=== PATIENT | female | born 1995 | race African-American/Black ===

== ENCOUNTER 2020-06-30 08:48 | Emergency (ER) | payer MEDICAID, SELFPAY ==
[2020-06-30 09:05] VITALS: BP 116/58; PULSE 83; RESP 16; TEMP 36.8; O2SAT 99; BMI 33.7
--- NOTE | 2020-06-30 09:40 | US_ITS ---
EXAMINATION: ULTRASOUND OF THE PELVIS CLINICAL INFORMATION: Suprapubic abdominal pain.. COMPARISON: Pelvic ultrasound done on 12/02/2017.. TECHNIQUE: Transabdominal and transvaginal pelvic ultrasound. Doppler evaluation including arterial as well as venous spectral Doppler waveforms and color Doppler were performed. FINDINGS: The uterus is normal in size and appearance, measuring 6.6 x 3.3 x 4.2 cm longitudinally, anteroposteriorly and transversely. The endometrial stripe thickness is normal, measuring 0.8 cm in thickness. No focal myometrial mass is seen. The ovaries bilaterally are visualized and appear normal, with the right ovary measuring 3.5 x 3.3 x 2.8 cm, and the left ovary measuring 2.1 x 2.1 x 2.0 cm. Arterial as well as venous flow to both ovaries are well-maintained. No adnexal mass or free fluid collection seen. A transvaginal study was performed in addition to the transabdominal study which did not yield an adequate examination of the uterus and ovaries due to superimposed distended gas-filled loops of bowel. US/US pelvic ovarian doppler IMPRESSION: Unremarkable examination.
--- NOTE | 2020-06-30 09:55 | US_ITS ---
EXAMINATION: ULTRASOUND OF THE PELVIS CLINICAL INFORMATION: Suprapubic abdominal pain.. COMPARISON: Pelvic ultrasound done on 12/02/2017.. TECHNIQUE: Transabdominal and transvaginal pelvic ultrasound. Doppler evaluation including arterial as well as venous spectral Doppler waveforms and color Doppler were performed. FINDINGS: The uterus is normal in size and appearance, measuring 6.6 x 3.3 x 4.2 cm longitudinally, anteroposteriorly and transversely. The endometrial stripe thickness is normal, measuring 0.8 cm in thickness. No focal myometrial mass is seen. The ovaries bilaterally are visualized and appear normal, with the right ovary measuring 3.5 x 3.3 x 2.8 cm, and the left ovary measuring 2.1 x 2.1 x 2.0 cm. Arterial as well as venous flow to both ovaries are well-maintained. No adnexal mass or free fluid collection seen. A transvaginal study was performed in addition to the transabdominal study which did not yield an adequate examination of the uterus and ovaries due to superimposed distended gas-filled loops of bowel. US/US pelvic complete IMPRESSION: Unremarkable examination.
[2020-06-30 09:58] LABS: MANUAL DIFF FLAG NO
[2020-06-30 10:00] LABS: Glucose Urine UA NEG (NEG); Leukocyte Esterase Urine NEG (NEG); Nitrite Urine NEG (NEG); PH 6.5 (5.0-8.0); Urine Blood 1+ (NEG); Urine Ketones NEG (NEG); Urine Protein NEG (NEG-TRACE)
[2020-06-30 10:02] LABS: Basophils Percent Auto 0.2 % (0-2); Eosinophils Percent Auto 0.5 % (0-4); Hematocrit 35.1 % (37-47); Hemoglobin 11.9 g/dl (12.0-16.0); Imm Gran Abs Auto 0.01 X10*3/uL (0.00-0.03); Imm Gran Pct Auto 0.2 % (0.0-0.4); Lymphocytes Percent Auto 15.8 % (20-40); Mean Corpuscular HGB Conc 33.9 g/dl (31.0-35.0); Mean Corpuscular Hemoglobin 30.7 pg (27.0-33.0); Mean Corpuscular Volume 90.5 fL (80-98); Mean Platelet Volume 10.1 fL (9.4-12.3); Monocytes Absolute Auto 0.4 X10*3/uL (0.1-1.2); Monocytes Percent Auto 5.8 % (2-11); Neutrophils Percent Auto 77.5 % (45-73); Platelet Count 230 X10*3/uL (160-400); Red Blood Count 3.88 X10*6/uL (4.20-5.50); Red Cell Distribution Width 13.4 % (11.0-16.0); White Blood Count 6.4 X10*3/uL (4.8-10.8)
[2020-06-30 10:03] LABS: Appearance Urine CLEAR; Color Urine YELLOW
[2020-06-30 10:04] LABS: UPreg QC Valid YES; Urine Pregnancy NEGATIVE (NEGATIVE)
[2020-06-30 10:08] LABS: WBC Urine 0-2 /HPF (0-4)
[2020-06-30 10:09] LABS: Mucus Urine 1+ /LPF; Squamous Epithelial Cell Urine 1+ /LPF
[2020-06-30 10:27] LABS: Alanine Aminotransferase 6 U/L (0-31); Albumin Level 4.2 g/dL (3.5-5.0); Alkaline Phosphatase 43 U/L (39-117); Anion Gap 15 (12-20); Aspartate Amino Transferase 11 U/L (5-31); Bilirubin Direct 0.2 mg/dL (0.0-0.5); Bilirubin Total 0.6 mg/dL (0.0-1.0); Blood Urea Nitrogen 10 mg/dL (9-16); Carbon Dioxide 24 mmol/L (22-29); Chloride 108 mmol/L (96-108); Creatinine Clr Calc Pharmacy 140.9; Estimated Glomerular Filt Rate > 60; Glucose Random 95 mg/dL (60-115); Magnesium 2.2 mg/dL (1.6-2.6); Potassium 3.5 mmol/l (3.3-5.1); Sodium 143 mmol/L (135-145); Total Protein 6.9 g/dL (6.5-8.0)
[2020-06-30 11:25] VITALS: BP 111/45; PULSE 58; RESP 16; TEMP 36.8; O2SAT 97
--- NOTE | 2020-06-30 11:28 | ED_ITS ---
HPI - Female Genitourinary General Chief complaint: Vaginal Bleeding Stated complaint: VAGINAL BLEEDNING Time Seen by Provider: 06/30/20 09:31 Source: patient Mode of arrival: ambulatory Limitations: no limitations History of Present Illness HPI Narrative: 24yoF c PMHx of asthma and pyelonephritis to the ED with com plaints of vaginal bleeding during intercourse for the past 2 days. Reports no bleeding after intercourse. Reports she feels like it fits her. With mild suprapubic abdominal cramping. She denies any fevers, nausea/vomiting, dysuria, hematuria, abnormal vaginal discharge or any other symptoms complaints or concerns. Reports that she has been sexually active with 2 different males unprotected in the past few months although reports she does not believe she has an STD but is here to be checked for an STD. Reports that her last period was on 06/18 which lasted a few days. Related Data Allergies Allergy/AdvReac Type Severity Reaction Status Date / Time Penicillins [PENICILLINS] Allergy Unknown RASH Unverified 04/12/20 16:36 Review of Systems Review of Systems: Constitutional : No Fever, No Chills ENT/Mouth : No sore throat, No Rhinorrhea Eyes: No Eye Pain, No Redness Cardiovascular : No Chest Pain, No SOB Respiratory : No Cough, No Sputum, No Wheezing Gastrointestinal : No Nausea, No Vomiting, No Diarrhea, positive abdominal pain, Genitourinary : + irregular bleeding, No Dysuria, No Urinary Frequency, No pelvic pain, No vaginal discharge Musculoskeletal : No Myalgias Skin : No rash Neuro : No Weakness, No Headache Psych : No Anxiety/Panic, No Depression Heme/Lymph: No bruising, No Lymphadenopathy Endocrine : No Polyuria, No Polydipsia Yes all other systems are reviewed and are negative [facility] Past Medical History Attestation statement: The following information was validated with the patient. Social History Social History Smoked in Last 30 Days: No Use of substances other than those prescribed or required for medical reasons: Yes Substance Use Type: Marijuana Advance Directives: No Advance Directives Information Provided: No Physical Exam Vital Signs: Vital Signs: Last Vital Signs Temp 98.3 F 06/30/20 11:25 Pulse 58 06/30/20 11:25 Resp 16 06/30/20 11:25 BP 111/45 L 06/30/20 11:25 Pulse Ox 97 06/30/20 11:25 Body Mass Index 33.7 vital signs have been reviewed as normal and appeared to be correct. Blood pressure normal. Heart rate normal. Respiration rate normal. Temperature normal. Oxygen saturation normal. Appearance: Alert. Oriented X3. No acute distress. Head: Normal external exam. Normocephalic. Atraumatic. No Navarrete signs noted. No raccoon eyes noted Eyes: PERRLA. EOMI. Conjunctiva and sclera normal. Eyelids normal. ENT: EAC normal. TM's Normal. Pharynx normal. Uvula midline. Moist mucous membranes. No trismus noted. No drooling noted. No muffled voice noted. Neck: Normal inspection. Neck supple. FROM. No adenopathy. Thyroid Normal. No meningeal signs. No neck mass noted. CVS: Normal heart rate and rhythm. Heart sound normal. No murmurs noted. Pulses normal throughout. Respiratory: No respiratory distress. Painless inspiration. Breath sounds normal. No wheezes/rales/rhonchi noted. Chest nontender. No accessory muscle usage noted or decreased air movement noted. Abdomen: Soft and nontender. Bowel sounds normal in all 4 quadrants. No distention noted. No organomegaly noted. No visible injury noted. : Supervised by TIMBO James Normal external appearance of urethra. No lesions/lacerations or discharge or tenderness noted. Speculum exam normal appearance/palpation of vagina normal. A light brown thin colored discharge noted. Otherwise no vaginal erythema. No foreign bodies noted. No vaginal laceration/lesions or active bleeding noted. No tissue present in vagina. No vaginal mass noted. No vaginal swelling noted. No vaginal tenderness noted. Normal appearance of cervix. Normal palpation of cervix. Cervical os is closed. No abnormal cervical discharge noted. No cervical lesion/mass. No Bartholin cyst noted. No cervical motion tenderness noted. Negative chandelier sign. Normal bimanual exam. Uterine size normal. Bladder normal to palpation. Uterine consistency normal. Normal cervical palpation. Uterine mobility normal. Uterine shape normal. Normal adnexa. Normal rectovaginal exam. Back: No CVA tenderness. Full range of motion noted. Skin: Skin warm and dry. Normal skin color. Normal skin turgor. No rashes/lesions/lacerations noted. Extremities: No lower extremity edema. Extremities exhibit normal range of motion. Extremities nontender. Neuro: Oriented X 3. No motor deficit. No sensory deficit. Reflexes normal. Course Course Course Narrative: 24yoF c PMHx of asthma and pyelonephritis presenting to the ED with complaints of vaginal bleeding during intercourse for the past 2 days. No bleeding after intercourse. Requesting STD testing. Has recently had unprotected intercourse with 2 different males. Denies any additional com plaints or concerns at this time. - labs obtained within normal limits. UA within normal limits no evidence of UTI. UHCG negative for . Transvaginal/pelvic/ovarian ultrasound within normal limits no acute processes noted. - chlamydia/Trichomonas/yeast/bacterial vaginosis pending at this time. I discussed with the patient about possible gonorrhea and chlamydia and risks associated with being untreated which include infertility therefore patient agreed with being treated for gonorrhea chlamydia with 1 g of azithromycin and 250 mg of IM ceftriaxone. All others will be pending which include Trichomonas/yeast and bacterial vaginosis. Will DC home with instructions to return if any new or worsening symptoms and to stay abstinent from any sexual intercourse for at least 14 days. Patient understands agrees the plan. MDM - Female Genitourinary Differential Diagnosis Differential diagnosis: Likely urinary tract infection, bacterial vaginosis, trichomoniasis, cervicitis, ovarian cyst, vaginitis and cystitis Medical Records Attestation: I reviewed the patient's medical records. Lab Data Attestation: I reviewed the patient's lab results. Result diagrams: 06/30/20 09:48 06/30/20 09:48 Labs: Lab Results 06/30/20 06/30/20 06/30/20 Range/Units 09:48 09:48 09:48 WBC 6.4 (4.8-10.8) X10*3/uL RBC 3.88 L (4.20-5.50) X10*6/uL Hgb 11.9 L (12.0-16.0) g/dl Hct 35.1 L (37-47) % MCV 90.5 (80-98) fL MCH 30.7 (27.0-33.0) pg MCHC 33.9 (31.0-35.0) g/dl RDW 13.4 (11.0-16.0) % Plt Count 230 (160-400) X10*3/uL MPV 10.1 (9.4-12.3) fL Immature Gran % (Auto) 0.2 (0.0-0.4) % Neut % (Auto) 77.5 H (45-73) % Lymph % (Auto) 15.8 L (20-40) % Sebastian % (Auto) 5.8 (2-11) % Eos % (Auto) 0.5 (0-4) % Baso % (Auto) 0.2 (0-2) % Lymph # (Auto) 1.0 L (1.2-4.9) X10*3/uL Sebastian # (Auto) 0.4 (0.1-1.2) X10*3/uL Eos # (Auto) 0.0 (0.0-0.4) X10*3/uL Baso # (Auto) 0.0 (0.0-0.2) X10*3/uL Abs Immat Gran (auto) 0.01 (0.00-0.03) X10*3/uL Absolute Neuts (auto) 5.0 (2.0-8.3) X10*3/uL Absolute Nucleated RBC 0.000 (0.0-0.012) X10*3/uL Nucleated RBC % (auto) 0.0 (0.0-0.2) /100WBC Hold Blue Top SEE NOTE Sodium 143 (135-145) mmol/L Potassium 3.5 (3.3-5.1) mmol/l Chloride 108 (96-108) mmol/L Carbon Dioxide 24 (22-29) mmol/L Anion Gap 15 (12-20) BUN 10 (9-16) mg/dL Creatinine 0.69 (0.5-1.4) mg/dL Estim Creat Clear Calc 140.9 Estimated GFR > 60 Random Glucose 95 (60-115) mg/dL Calcium 9.0 (8.4-10.2) mg/dL Magnesium 2.2 (1.6-2.6) mg/dL Total Bilirubin 0.6 (0.0-1.0) mg/dL Direct Bilirubin 0.2 (0.0-0.5) mg/dL AST 11 (5-31) U/L ALT 6 (0-31) U/L Alkaline Phosphatase 43 (39-117) U/L Total Protein 6.9 (6.5-8.0) g/dL Albumin 4.2 (3.5-5.0) g/dL Urine Color Urine Appearance Urine pH (5.0-8.0) Ur Specific [place] (1.005-1.025) Urine Protein (NEG-TRACE) MG/DL Urine Glucose (UA) (NEG) MG/DL Urine Ketones (NEG) MG/DL Urine Blood (NEG) Urine Nitrite (NEG) Ur Leukocyte Esterase (NEG) Urine RBC (0) /HPF Urine WBC (0-4) /HPF Ur Squamous Epith Cells /LPF Urine Bacteria /LPF Urine Mucus /LPF Urine Test (NEGATIVE) 06/30/20 Range/Units 09:49 WBC (4.8-10.8) X10*3/uL RBC (4.20-5.50) X10*6/uL Hgb (12.0-16.0) g/dl Hct (37-47) % MCV (80-98) fL MCH (27.0-33.0) pg MCHC (31.0-35.0) g/dl RDW (11.0-16.0) % Plt Count (160-400) X10*3/uL MPV (9.4-12.3) fL Immature Gran % (Auto) (0.0-0.4) % Neut % (Auto) (45-73) % Lymph % (Auto) (20-40) % Sebastian % (Auto) (2-11) % Eos % (Auto) (0-4) % Baso % (Auto) (0-2) % Lymph # (Auto) (1.2-4.9) X10*3/uL Sebastian # (Auto) (0.1-1.2) X10*3/uL Eos # (Auto) (0.0-0.4) X10*3/uL Baso # (Auto) (0.0-0.2) X10*3/uL Abs Immat Gran (auto) (0.00-0.03) X10*3/uL Absolute Neuts (auto) (2.0-8.3) X10*3/uL Absolute Nucleated RBC (0.0-0.012) X10*3/uL Nucleated RBC % (auto) (0.0-0.2) /100WBC Hold Blue Top Sodium (135-145) mmol/L Potassium (3.3-5.1) mmol/l Chloride (96-108) mmol/L Carbon Dioxide (22-29) mmol/L Anion Gap (12-20) BUN (9-16) mg/dL Creatinine (0.5-1.4) mg/dL Estim Creat Clear Calc Estimated GFR Random Glucose (60-115) mg/dL Calcium (8.4-10.2) mg/dL Magnesium (1.6-2.6) mg/dL Total Bilirubin (0.0-1.0) mg/dL Direct Bilirubin (0.0-0.5) mg/dL AST (5-31) U/L ALT (0-31) U/L Alkaline Phosphatase (39-117) U/L Total Protein (6.5-8.0) g/dL Albumin (3.5-5.0) g/dL Urine Color YELLOW Urine Appearance CLEAR Urine pH 6.5 (5.0-8.0) Ur Specific [place] 1.020 (1.005-1.025) Urine Protein NEG (NEG-TRACE) MG/DL Urine Glucose (UA) NEG (NEG) MG/DL Urine Ketones NEG (NEG) MG/DL Urine Blood 1+ H (NEG) Urine Nitrite NEG (NEG) Ur Leukocyte Esterase NEG (NEG) Urine RBC 1-4 (0) /HPF Urine WBC 0-2 (0-4) /HPF Ur Squamous Epith Cells 1+ /LPF Urine Bacteria NONE /LPF Urine Mucus 1+ /LPF Urine Test NEGATIVE (NEGATIVE) Imaging Data US - abdomen: Attestation: I personally reviewed and interpreted this imaging study as follows: Radiologist's impression: IMPRESSION: Unremarkable examination. Discharge Plan Discharge Clinical Impression: Vaginal bleeding Patient Disposition: Home, Self-Care Instructions: Dysfunctional Uterine Bleeding (ED), Safe Sex Practices (ED), Sexually Transmitted Diseases (ED) Additional Instructions: You were treated for gonorrhea and chlamydia today although this does not mean that you were results came back positive they are still pending. You have Trichomonas/bacterial vaginosis/yeast still pending at this time you were not treated for this. If any of these are positive you will be contacted. You should stay abstinent from any sexual intercourse for at least 10-14 days. If you are contacted and you were negative for gonorrhea chlamydia you can return back to sexual intercourse before this. Return if any new or worsening symptoms. Follow up with her primary care provider/OBGYN. Referrals: Physician,Unknown [Primary Care Provider] - 2 days (your pcp/obgyn) Print Language: Croatian
[2020-06-30] MEDS: Azithromycin 500 MG TABLET 1000 MG PO (11:56)
[2020-06-30] MEDS: cefTRIAXone sodium 250 MG, Lidocaine HCl 1 % MPF 0.9 ML IM (12:00)
[2020-07-01 13:14] LABS: BV Int Neg Control Negative (Negative); BV Int Pos Control Positive (Positive)
[2020-07-06 14:27] LABS: CT PCR DETECTED (Not Detect.); NG PCR NOT DETECTED (Not Detect.)
== END 2020-06-30 12:03 | disposition home or self-care (01) ==
PROVIDERS: Physician Assistant Medical; Emergency Provider Emergency Medicine Emergency Medical Services
DX: N93.9 Abnormal uterine and vaginal bleeding, unspecified (principal); N76.0 Acute vaginitis; A56.02 Chlamydial vulvovaginitis
CPT/HCPCS: 36415; 76830; 76856; 80048; 80076; 81001; 81025; 83735; 85025; 87480; 87491; 87510; 87591; 87660; 93975; 96372; 99284; J0696

== ENCOUNTER 2020-08-14 13:02 | Emergency (ER) | payer MEDICAID, SELFPAY ==
[2020-08-14 14:25] VITALS: BP 118/81; PULSE 68; RESP 18; TEMP 36.8; O2SAT 98; BMI 33.3
--- NOTE | 2020-08-14 14:59 | ED.FEMALEGU ---
HPI - Female Genitourinary General Chief complaint: Urogenital-Female <ODETTE Hamilton - Last Filed: 08/14/20 15:04> Stated complaint: std? <ODETTE Hamilton - Last Filed: 08/14/20 15:04> Time Seen by Provider: 08/14/20 14:32 <ODETTE Hamilton - Last Filed: 08/14/20 15:04> Source: patient <ODETTE Hamilton Last Filed: 08/14/20 15:04> Mode of arrival: ambulatory <ODETTE Hamilton - Last Filed: 08/14/20 15:04> Limitations: no limitations <ODETTE Hamilton Last Filed: 08/14/20 15:04> History of Present Illness HPI Narrative: 24-year-old female presenting to the ED with complaints of exposure to possible STD. Reports that she was seen here on 06/30/2020 and treated for gonorrhea chlamydia, bacterial vaginosis and yeast infection although she had sexual intercourse with the same male who she believes might not have received proper treatment therefore she is concerned for gonorrhea chlamydia and wants to be treated again. Denies any symptoms at this time. <ODETTE Hamilton - Last Filed: 08/14/20 15:04> Related Data Home medications: Previous Rx's Medication Instructions Recorded fluconazole [Diflucan] 150 mg PO Q3D #2 tab 07/02/20 metronidazole [Flagyl] 500 mg PO BID 7 Days #14 tab 07/02/20 doxycycline monohydrate 100 mg PO BID 10 Days #20 cap 08/14/20 fluconazole [Diflucan] 150 mg PO Q3D #2 tab 08/14/20 metronidazole [Flagyl] 500 mg PO BID 7 Days #14 tab 08/14/20 <ODETTE Hamilton Last Filed: 08/14/20 15:04> Allergies/Adverse reactions: Allergies Allergy/AdvReac Type Severity Reaction Status Date / Time Penicillins [PENICILLINS] Allergy Unknown RASH Verified 08/14/20 14:29 <ODETTE Hamilton Last Filed: 08/14/20 15:04> Review of Systems Review of Systems: Constitutional : No Fever, No Chills ENT/Mouth : No sore throat, No Rhinorrhea Eyes: No Eye Pain, No Redness Cardiovascular : No Chest Pain, No SOB Respiratory : No Cough, No Sputum, No Wheezing Gastrointestinal : No Nausea, No Vomiting, No Diarrhea, positive abdominal pain, Genitourinary : No irregular bleeding, No Dysuria, No Urinary Frequency, No pelvic pain Musculoskeletal : No Myalgias Skin : No rash Neuro : No Weakness, No Headache Psych : No Anxiety/Panic, No Depression Heme/Lymph: No bruising, No Lymphadenopathy Endocrine : No Polyuria, No Polydipsia <ODETTE Hamilton - Last Filed: 08/14/20 15:04> Yes all other systems are reviewed and are negative <ODETTE Hamilton - Last Filed: 08/14/20 15:04> COUNT INCLUDES THE [facility] Past Medical History Attestation statement: The following information was validated with the patient. <ODETTE Hamilton - Last Filed: 08/14/20 15:04> Social History Social History: Social History Substance Use Type: Marijuana Advance Directives: No Advance Directives Information Provided: Yes <ODETTE Hamilton - Last Filed: 08/14/20 15:04> Physical Exam Vital Signs: Vital Signs: Last Vital Signs Temp 98.3 F 08/14/20 14:25 Pulse 68 08/14/20 14:25 Resp 18 08/14/20 14:25 BP 118/81 08/14/20 14:25 Pulse Ox 98 08/14/20 14:25 Body Mass Index 33.3 vital signs have been reviewed as normal and appeared to be correct. Blood pressure normal. Heart rate normal. Respiration rate normal. Temperature normal. Oxygen saturation normal. <ODETTE Hamilton - Last Filed: 08/14/20 15:04> Vital Signs: Last Vital Signs Temp 98.3 F 08/14/20 14:25 Pulse 68 08/14/20 14:25 Resp 18 08/14/20 14:25 BP 118/81 08/14/20 14:25 Pulse Ox 98 08/14/20 14:25 Body Mass Index 33.3 <Preston Vizcarra MD - Last Filed: 08/22/20 08:19> Appearance: Alert. Oriented X3. No acute distress. Head: Normal external exam. Normocephalic. Atraumatic. Eyes: PERRLA. EOMI. Conjunctiva and sclera normal. Eyelids normal. ENT:Pharynx normal. Uvula midline. Moist mucous membranes. Neck: Normal inspection. Neck supple. FROM. No adenopathy. Thyroid Normal. No meningeal signs. No neck mass noted. CVS: Normal heart rate and rhythm. Heart sound normal. No murmurs noted. Pulses normal throughout. Respiratory: No respiratory distress. Painless inspiration. Breath sounds normal. No wheezes/rales/rhonchi noted. Chest nontender. No accessory muscle usage noted or decreased air movement noted. Abdomen: Soft and nontender. Bowel sounds normal in all 4 quadrants. No distention noted. No organomegaly noted. No visible injury noted. : Pt refused Back: No CVA tenderness noted. Full range of motion noted. Skin: Skin warm and dry. Normal skin color. Normal skin turgor. No rashes/lesions/lacerations noted. Extremities: Extremities exhibit normal range of motion. Extremities nontender. Neuro: Oriented X 3. No motor deficit. No sensory deficit. Reflexes normal. <ODETTE Hamilton - Last Filed: 08/14/20 15:04> Course Course Course Narrative: Patient with exposure to possible STD therefore will treat for gonorrhea chlamydia with 500 mg of IM ceftriaxone, 100 mg of doxycycline b.i.d. times 10 days and treat for bacterial vaginosis and yeast as well as patient was positive in the past. Instructed patient to not have any sexual intercourse for at least 14 days and to return if any new or worsening symptoms. I explained to her that her partner or any partner should be treated as well to prevent reinfection. To return if any new or worsening symptoms to follow up with primary care provider/OBGYN. Patient understands agrees the plan. <ODETTE Hamilton - Last Filed: 08/14/20 15:04> I have reviewed the chart <Preston Vizcarra MD - Last Filed: 08/22/20 08:19> MDM - Female Genitourinary Medical Records Attestation: I reviewed the patient's medical records. <ODETTE Hamilton - Last Filed: 08/14/20 15:04> Lab Data Attestation: I reviewed the patient's lab results. <ODETTE Hamilton - Last Filed: 08/14/20 15:04> Labs: Lab Results 08/14/20 08/14/20 08/14/20 Range/Units 14:41 14:58 Unknown Shonda species DNA Negative (Negative) Chlam trachomat DNA PCR Cancelled C.trachomatis RNA (TMA) NOT DETECTED (NOT DETECTED) Chlamydia/GC Comment SEE NOTE Gardnerella DNA Probe Positive A (Negative) N.gonorrhoeae DNA (PCR) Cancelled N.gonorrhoeae RNA (TMA) NOT DETECTED (NOT DETECTED) Trichomonas DNA Probe Negative (Negative) <ODETTE Hamilton - Last Filed: 08/14/20 15:04> Lab Results 08/14/20 08/14/20 08/14/20 Range/Units 14:41 14:58 Unknown Shonda species DNA Negative (Negative) Chlam trachomat DNA PCR Cancelled C.trachomatis RNA (TMA) NOT DETECTED (NOT DETECTED) Chlamydia/GC Comment SEE NOTE Gardnerella DNA Probe Positive A (Negative) N.gonorrhoeae DNA (PCR) Cancelled N.gonorrhoeae RNA (TMA) NOT DETECTED (NOT DETECTED) Trichomonas DNA Probe Negative (Negative) <Preston Vizcarra MD - Last Filed: 08/22/20 08:19> Discharge Plan Discharge Clinical Impression: Possible exposure to STD <ODETTE Hamilton Last Filed: 08/14/20 15:04> Patient Disposition: Home, Self-Care <ODETTE Hamilton Last Filed: 08/14/20 15:04> Instructions: Sexually Transmitted Diseases (ED), Safe Sex Practices (ED) <ODETTE Hamilton Last Filed: 08/14/20 15:04> Additional Instructions: You were treated for gonorrhea and chlamydia today although this does not mean that you were results came back positive they are still pending. You have Trichomonas/bacterial vaginosis/yeast still pending at this time. The only 1 you are not being treated for at this time is Trichomonas. If any of these are positive you will be contacted. You should stay abstinent from any sexual intercourse for at least 10-14 days. If you are contacted and you were negative for gonorrhea chlamydia you can return back to sexual intercourse before this. Return if any new or worsening symptoms. Follow up with her primary care provider/OBGYN. <ODETTE Hamilton - Last Filed: 08/14/20 15:04> Prescriptions: New doxycycline monohydrate 100 mg capsule 100 mg PO BID 10 Days Qty: 20 RF: 0 fluconazole [Diflucan] 150 mg tablet 150 mg PO Q3D Qty: 2 RF: 0 metronidazole [Flagyl] 500 mg tablet 500 mg PO BID 7 Days Qty: 14 RF: 0 No Action metronidazole [Flagyl] 500 mg tablet 500 mg PO BID 7 Days Qty: 14 RF: 0 fluconazole [Diflucan] 150 mg tablet 150 mg PO Q3D Qty: 2 RF: 0 <ODETTE Hamilton - Last Filed: 08/14/20 15:04> Referrals: [facility] [Primary Care Provider] - 2 days <ODETTE Hamilton - Last Filed: 08/14/20 15:04> Interventions: ED Discharge Assessment Last Done: 08/14/20 15:31 <ODETTE Hamilton - Last Filed: 08/14/20 15:04> Discharge Date/Time: 08/14/20 15:31 <ODETTE Hamilton - Last Filed: 08/14/20 15:04> Print Language: Mongolian <ODETTE Hamilton - Last Filed: 08/14/20 15:04>
[2020-08-14] MEDS: cefTRIAXone sodium 500 MG VIAL IM (15:27)
[2020-08-15 09:28] LABS: BV Int Neg Control Negative (Negative); BV Int Pos Control Positive (Positive)
[2020-08-16 00:27] LABS: C. trachomatis RNA TMA NOT DETECTED (NOT DETECTED); N. gonorrhoeae RNA TMA NOT DETECTED (NOT DETECTED)
== END 2020-08-14 15:31 | disposition home or self-care (01) ==
PROVIDERS: Physician Assistant Medical; Emergency Provider Emergency Medicine
DX: Z11.3 Encounter for screening for infections with a predominantly sexual mode of transmission (principal)
CPT/HCPCS: 36415; 87480; 87491; 87510; 87591; 87660; 96372; 99283; 99284; J0696

== ENCOUNTER 2021-03-12 15:43 | Outpatient (REF) | payer MEDICAID, SELFPAY ==
--- NOTE | ~2021-03-12 | XR_ITS ---
EXAMINATION: XR CHEST 2 VIEWS CLINICAL INFORMATION: Anterior chest pain and bronchitis. COMPARISON: None. TECHNIQUE: Frontal and lateral views of the chest were obtained. FINDINGS: The heart, great vessels, pulmonary vasculature and mediastinum are normal. The lungs show no focal infiltrate, effusion or pneumothorax. There is no acute osseous abnormality. XR/XR chest 2V IMPRESSION: No active cardiopulmonary disease.
== END 2021-03-12 15:44 | disposition home or self-care (01) ==
LOC: HO.XRAY 15:43
PROVIDERS: Visit Provider Emergency Medicine
DX: J40 Bronchitis, not specified as acute or chronic (principal)
CPT/HCPCS: 71046

== ENCOUNTER 2021-04-19 16:10 | Emergency (ER) | payer MEDICAID, SELFPAY | END 2021-04-19 20:16 | disposition left against medical advice (07) | PROVIDERS: Emergency Provider Emergency Medicine | DX: Z04.1 Encounter for examination and observation following transport accident (principal) ==

== ENCOUNTER 2022-05-01 11:12 | Emergency (ER) | payer MEDICAID, SELFPAY ==
--- NOTE | 2022-05-01 12:13 | PC.NURSE ---
called multiple times for triage but no answer
== END 2022-05-01 17:30 | disposition left against medical advice (07) ==
PROVIDERS: Emergency Provider Emergency Medicine
DX: Z20.822 Contact with and (suspected) exposure to COVID-19 (principal)

== ENCOUNTER 2022-05-01 16:22 | Emergency (ER) | payer MEDICAID, SELFPAY ==
[2022-05-01 17:33] VITALS: BP 136/96; PULSE 71; RESP 20; TEMP 37.1; O2SAT 100; BMI 28.3
[2022-05-01 18:39] LABS: Appearance Urine Clear; Color Urine Yellow; Glucose Urine UA Negative (Negative); Leukocyte Esterase Urine Negative (Negative); Nitrite Urine Negative (Negative); PH 5.5 (5.0-9.0); Specific Gravity - Urine 1.015 (1.005-1.025); Urine Blood Negative (Negative); Urine Ketones Negative (Negative); Urine Protein Negative (Neg-Trace)
[2022-05-01 19:13] LABS: COVID-19 Test Negative (Negative); IDNOW Serial# 55D5AD1C
[2022-05-02 06:21] LABS: CT PCR NOT DETECTED (Not Detect.); NG PCR NOT DETECTED (Not Detect.)
== END 2022-05-02 05:05 | disposition left against medical advice (07) ==
PROVIDERS: Emergency Provider Emergency Medicine
DX: R05.9 Cough, unspecified (principal); R50.9 Fever, unspecified; R51.9 Headache, unspecified; Z20.822 Contact with and (suspected) exposure to COVID-19; Z79.899 Other long term (current) drug therapy
CPT/HCPCS: 81003; 87491; 87591; 87635; 99282; 99283

== ENCOUNTER 2025-03-09 16:54 | Outpatient (REF) | payer MEDICAID, SELFPAY ==
--- OUTSIDE RECORDS SUMMARY | 2025-03-09 16:56 | XMS_ITS | Encounter Summary ---
Author Organization [employer] Address [address] [place] [address] Care Team Providers Care Magnet Valve Assembler Name Role Phone Autumn Chua MD Primary Care Pro vider Encounter Details Date Type Department Care Team (Latest Contact Info) Description 03/09/2025 Travel Social History Tobacco Use Types Packs/Day Years Used Date Smoking Tobacco: Never Alcohol Use Standard Drinks/Week Comments Never 0 (1 standard drink = 0.6 oz pur e alcohol) Depression Answer Date Recorded Patient Health Questionnaire-9 Score 0 03/09/2025 Patient Health Questionnaire-9 Score 0 03/09/2025 Last PHQ-9: Questionnaire Data Not on file 0 03/09/2025 Housing Stability Answer Date Recorded What is your housing situation today? I have vero kamara 03/02/[address] you li ve. Do you have problems with any of the following? None of the above 03/02/2025 Food Insecurity Answer Date Recorded Within the past 12 months, y ou worried that your food would run out before you got money to buy more: Never True 03/02/2025 Within the past 12 months,th e food you bought just didn't last and you didn't have enough money to get more: Never True 01/2025 Transportation Answer Date Recorded In the past 12 months, has l ack of transportation kept you from medical appts, meetings, work or from getting things needed for daily living? No 03/02/2025 Utilities Answer Date Recorded In the past 12 months, has t he electric, gas, oil or water company threatened to shut off services in your home? No 03/02/2025 Depression Answer Date Recorded Patient Health Questionnaire-2 Score 0 03/09/2025 Internet Access Answer Date Recorded Internet Access Q1 Yes 03/02/2025 Internet Access Q2 Not on file 03/02/2025 Comments Unknown Sex and Gender Information Value Date Recorded Sex Assigned at Female 05/26/2022 10:14 AM EDT Legal Sex Female 10:14 AM EDT Gender Identity Female 05/26/2022 10:14 AM EDT Sexual Orientation Straight 03/09/2025 2: 32 PM EDT documented as of this encounter Functional Status * Over the past 2 weeks, how often have you been bothered by any of the following problems? Question Answer Date of Assessment Author Patient Health Questionnaire -2 Score 0 03/09/2025 2:26 PM EDT Shannan Torres MA * Little interest or pleasure in doing things Answer Date of Assessment Author Not at all 03/09/2025 2:26 PM EDT Lolly Torres MA * Feeling down, depressed, or hopeless Answer Date of Assessment Author Not at all 03/09/2025 2:26 PM EDT Lolly Torres MA * Trouble falling or staying asleep, or sleeping too much Answer Date of Assessment Author Not at all 03/09/2025 2:26 PM EDT Lolly Torres MA * Feeling tired or having little energy Answer Date of Assessment Author Not at all 03/09/2025 2:26 PM EDT Lolly Torres MA * Poor appetite or overeating Answer Date of Assessment Author Not at all 03/09/2025 2:26 PM EDT Lolly Torres MA * Feeling bad about yourself - or that you are a failure or have let yourself or your family down Answer Date of Assessment Author Not at all 03/09/2025 2:26 PM EDT Lolly Torres MA * Trouble concentrating on things, such as reading the newspaper or watching television Answer Date of Assessment Author Not at all 03/09/2025 2:26 PM EDT Lolly Torres MA * Moving or speaking so slowly that other people could have noticed? Or the opposite - being so fidgety or restless that you have been moving around a lot more than usual. Answer Date of Assessment Author Not at all 03/09/2025 2:26 PM EDT Lolly Torres MA * Thoughts that you would be better off or hurting yourself in some way Answer Date of Assessment Author Not at all 03/09/2025 2:26 PM EDT Lolly Torres MA * Patient Health Questionnaire-9 Score Answer Date of Assessment Author 0 03/09/2025 2:26 PM EDT Lolly Torres MA * Over the last 2 weeks, how often have you been bothered by any of the following problems? Question Answer Date of Assessment Author Feeling nervous, anxious, or on edge 0 03/09/2025 2:25 PM EDT Shannan Torres MA Not being able to stop or co ntrol worrying 0 03/09/2025 2:25 PM EDT Shannan Torres MA Worrying too much about diff erent things 0 03/09/2025 2:25 PM EDT Shannan Torres MA Trouble relaxing 0 03/09/2025 2:25 PM EDT Shannan Torres MA Being so restless that it is hard to sit still 0 03/09/2025 2:25 PM EDT Shannan Torres MA Becoming easily annoyed or irritable 0 03/09/2025 2:25 PM EDT Shannan Torres MA Feeling afraid as if somethi ng awful might happen 0 03/09/2025 2:25 PM EDT Shannan Torres MA GENIA-7 Total Score 0 03/09/2025 2:25 PM EDT Shannan Torres MA documented as of this encounter Plan of Treatment Upcoming Encounters Date Type Department Care Team (Late st Contact Info) Description 05/16/2025 9:00 AM EDT Office Visit [facility] [address] [place] [address] Autumn Chua MD [address] [place] [address] documented as of this encounter Visit Diagnoses Not on filedocumented in this encounter Additional Health Concerns Assessment Noted Time PHQ-9 Depression Total Score: 0 03/09/20 25 2:26 PM EDT documented as of this encounter Care Teams Magnet Valve Assembler Relationship Specialty Start Date End Date Autumn Chua MD [address] [place] [phone] PCP - General Internal Medicine 12/15/24 documented as of this encounter
--- OUTSIDE RECORDS SUMMARY | 2025-03-09 16:56 | XMS_ITS | Encounter Summary ---
Author Organization [facility] Address [address] [place] [id number] Phone Care Team Providers Care Manager Dental Name Role Phone Mellissa Waters MD Primary Care Provider [phone] Encounter Details Date Type Department Care Team (Late st Contact Info) Description 01/03/2014 Documentation [facility] [place] Family Medicine [address] [place] [address] Family Medicine, Physician [address], [place] [id number] Social History Tobacco Use Types Packs/Day Years Used Date Smoking Tobacco: Never Assessed Comments Unknown Sex and Gender Information Value Date Recorded Sex Assigned at Not on file Legal Sex Female 4:30 PM EDT Gender Identity Not on file Sexual Orientation Not on file documented as of this encounter Plan of Treatment Not on file documented as of this encounter Visit Diagnoses Not on filedocumented in this encounter Care Teams Manager Dental Relationship Specialty Start Date End Date Mellissa Waters MD [address] [place] [id number] PCP - General 03/06/17 11/04/22 documented as of this encounter
[2025-03-10 04:42] LABS: Bacterial Vaginosis PCR POSITIVE (Negative); Candida Group PCR NOT DETECTED (Not Detect); Candida glab krusei PCR DETECTED (Not Detect); Trichomonas vaginalis PCR NOT DETECTED (Not Detect)
[2025-03-10 05:12] LABS: CT PCR NOT DETECTED (Not Detect.); NG PCR NOT DETECTED (Not Detect.)
== END 2025-03-09 16:55 | disposition home or self-care (01) ==
LOC: HO.HHCLNP 16:54
PROVIDERS: Visit Provider Student in an Organized Health Care Education/Training Program
DX: Z11.3 Encounter for screening for infections with a predominantly sexual mode of transmission (principal); Z11.8 Encounter for screening for other infectious and parasitic diseases; N89.8 Other specified noninflammatory disorders of vagina
CPT/HCPCS: 81515; 87491; 87591